=== PATIENT | male | born 1950 | race Caucasian/White ===

== ENCOUNTER 2016-07-26 11:12 | Emergency (ER) | payer OTHER ==
[~2016-07-26] VITALS: Ht 175.3 cm; Wt 100.0 kg
[2016-07-26 11:15] VITALS: BP 162/85; PULSE 85; RESP 20; TEMP 97.5; O2SAT 96
--- NOTE | 2016-07-26 11:29 | PD ---
HPI Chief Complaint: Injury Time Seen by Provider: 11:29 Travel History International Travel<30 days: No Contact w/Intl Traveler<30days: No Traveled to known affect area: No History of Present Illness HPI 66-year-old male presents to the emergency Department with sudden onset right ankle pain, swelling, warmth, and erythema that woke him up 2 AM this morning. Patient states he walks a lot yesterday in flip-flops, but denies specific injury. There are no open wounds on his feet. Patient has no history of cellulitis or diabetes. Patient has no history of gout in the past. Patient is unable to bear weight on his ankle today. Patient has no fever chills or other symptoms. He has no known drug allergies. [facility] Social History Alcohol Use: No Tobacco Use: Yes Substance Use: No Allergies-Medications (Allergen,Severity, Reaction): Coded Allergies: No Known Allergies (Unverified , 07/26/16) Reported Meds & Prescriptions Reported Meds & Active Scripts Active Acetaminophen Extra Strength (Acetaminophen) 500 Mg Cap 1,000 Mg PO Q6H PRN Prednisone 20 Mg Tab 20 Mg PO BID Review of Systems Except as stated in HPI: all other systems reviewed are Neg General / Constitutional: No: Fever Eyes: No: Visual changes HENT: No: Headaches Cardiovascular: No: Chest Pain or Discomfort Respiratory: No: Shortness of Breath Gastrointestinal: No: Abdominal Pain Genitourinary: No: Dysuria Musculoskeletal: Positive: Arthralgias, Limited ROM, Pain Skin: No Rash Neurologic: No: Weakness Psychiatric: No: Depression Endocrine: No: Polydipsia Hematologic/Lymphatic: No: Easy Bruising Physical Exam Narrative GENERAL: Patient appears in mild distress. SKIN: Warm and dry. Normal color. Normal turgor. Patient has mild erythema over the right ankle. HEAD: Atraumatic. Normocephalic. EYES: Pupils equal and round. No scleral icterus. No injection or drainage. ENT: No nasal bleeding or discharge. Mucous membranes pink and moist. Pharynx is normal. NECK: Trachea midline. Supple nontender. CARDIOVASCULAR: Regular rate and rhythm. RESPIRATORY: No accessory muscle use. Clear to auscultation. Breath sounds equal bilaterally. MUSCULOSKELETAL: Extremities without clubbing, cyanosis, or edema. No obvious deformities. Patient has moderate generalized swelling over the right ankle increased warmth, but no point bony tenderness or crepitus appreciated. NEUROLOGICAL: Awake and alert. No obvious cranial nerve deficits. Motor grossly within normal limits. Five out of 5 muscle strength in the arms and legs. Normal speech. PSYCHIATRIC: Appropriate mood and affect; insight and judgment normal. Data Data Last Documented VS Vital Signs Date Time Temp Pulse Resp B/P Pulse Ox O2 Delivery O2 Flow Rate FiO2 07/26/16 11:15 97.5 85 20 162/85 96 Room Air Orders Ankle, Complete ([id number]) (07/26/16 11:38) Ice/Cold Pack (07/26/16 11:38) Crutches (07/26/16 11:38) Prednisone (Deltasone) (07/26/16 11:45) MDM Medical Decision Making Medical Screen Exam Complete: Yes Emergency Medical Condition: Yes Differential Diagnosis Right ankle sprain. Right ankle arthrosis. Cellulitis. Gouty arthritis. Narrative Course Patient is medically stable at time of exam. X-ray of the right ankle is obtained showing considerable arthritic changes but no acute findings. Soft tissue swelling is noted. Patient is given 60 mg prednisone by mouth. Patient is felt stable to be discharged home with prednisone 20 mg twice a day 7 days. Patient is also given extra strength Tylenol 4 times a day #60. Patient is given crutches to use as needed for ambulation. Patient is recommended to follow-up with a local primary care physician. Patient is to return to emergency Department with worsening symptoms if necessary. Diagnosis Primary Impression: Gout attack Qualified Code: M10.9 - Acute gout of right ankle, unspecified cause Referrals: Primary Care Physician Patient Instructions: General Instructions, Gout (ED) Additional Instructions: X-ray of the right ankle is obtained showing considerable arthritic changes but no acute findings. Soft tissue swelling is noted. Patient is given 60 mg prednisone by mouth. Patient is felt stable to be discharged home with prednisone 20 mg twice a day 7 days. Patient is also given extra strength Tylenol 4 times a day #60. Patient is given crutches to use as needed for ambulation. Patient is recommended to follow-up with a local primary care physician. Patient is to return to emergency Department with worsening symptoms if necessary. Med/Other Pt SpecificInfo: Prescription(s) given Scripts Acetaminophen (Acetaminophen Extra Strength)500 Mg Cap1,000 Mg PO Q6H PRN (PAIN SCALE 4 TO 10) #60 CAP Ref 1 Prov:Efe Fowler MD 07/26/16 Prednisone 20 Mg Tab20 Mg PO BID #14 TAB Prov:Efe Fowler MD 07/26/16 Disposition: 01 DISCHARGE HOME Condition: Stable Peter Schaefer Jul 26, 2016 11:29
[2016-07-26] MEDS ORDERED: predniSONE 20 MG TAB PO ONE (11:45)
[2016-07-26] MEDS ORDERED: PRED20 PO (12:21)
[2016-07-26] MEDS ORDERED: EXTR500C PO (12:21)
--- NOTE | 2016-07-26 12:29 | RADRPT ---
EXAM DATE/TIME: 07/26/2016 12:10 [facility] COMPARISON: No previous studies available for comparison. INDICATIONS: Left ankle pain. MEDICAL HISTORY: None. SURGICAL HISTORY: None. ENCOUNTER: Initial ACUITY: 1 day PAIN SCORE: 8/10 LOCATION: Left ankle FINDINGS: There is generalized soft tissue swelling evident. Degenerative changes are seen about the medial an d lateral malleolus. There may be a small acute avulsion present on the medial side as well. CONCLUSION: Soft tissue swelling on both sides of the ankle with acute and chronic findings on the medial side. Danilo Machado MD FACR on July 26, 2016 at 12:18 Board Certified Radiologist. This report was verified electronically.
== END 2016-07-26 12:54 | disposition home or self-care (01) ==
LOC: NEPB 11:12
DX: M10.9 Gout, unspecified (principal); Z72.0 Tobacco use
CPT/HCPCS: 73610; 99283; E0113; J7512